=== PATIENT | male | born 1985 | race Caucasian/White ===

== ENCOUNTER 2018-07-21 21:18 | Emergency (ER) | payer OTHER ==
[2018-07-21 21:25] VITALS: BP 139/70; PULSE 94; TEMP 98.2; BMI 30.1
--- NOTE | 2018-07-21 21:33 | PDOC ---
History of Present Illness - General Chief Complaint: Injury Stated Complaint: LEFT SHOULDER PAIN Time Seen by Provider: 07/21/18 21:29 - History of Present Illness Initial Comments: 32-year-old male without comorbidities presents for evaluation of left shoulder pain. He states he was chasing a suspect. Climb the fence and fell on his left shoulder. He points just anterior lateral aspect of the left shoulder as the area of his discomfort. 07/21/18 21:32 Past History - Past Medical History Allergies/Adverse Reactions: Allergies Allergy/AdvReac Type Severity Reaction Status Date / Time cefprozil [From Cefzil] Allergy Intermediate Rash Verified 07/21/18 21:23 COPD: No - Immunization History Immunization Up to Date: Yes - Suicide/Smoking/Psychosocial Hx Smoking Status: No Smoking History: Never smoked Number of Cigarettes Smoked Daily: 0 Hx Alcohol Use: No Drug/Substance Use Hx: No Review of Systems - Review of Systems Musculoskeletal: Yes: See HPI, Joint Pain All Other Systems: Reviewed and Negative *Physical Exam - Vital Signs Last Vital Signs Temp Pulse Resp BP Pulse Ox 98.2 F 94 H 18 139/70 96 07/21/18 21:23 07/21/18 21:23 07/21/18 21:23 07/21/18 21:23 07/21/18 21:23 - Physical Exam Comments: Left shoulder range of motion is full with pain at terminal abduction and external rotation. 5 out of 5 strength in all planes including super spinatus isolation. Mildly positive impingement maneuvers. Mild tenderness over the before meals joint. No evidence of instability. No gross sensorimotor deficits negative Spurling maneuver. He has no gross sensorimotor deficits. He is neurovascularly intact 07/21/18 21:33 ED Treatment Course - RADIOLOGY Radiology Studies Ordered: Category Date Time Status SHOULDER-LEFT [RAD] Stat Radiology 07/21/18 21:32 Ordered Medical Decision Making - Medical Decision Making X-ray show no evidence of fracture trauma destructive process this is a left shoulder strain 07/21/18 22:06 *DC/Admit/Observation/Transfer Diagnosis at time of Disposition: Strain of shoulder, left - Discharge Dispostion Disposition: HOME Condition at time of disposition: Stable Decision to Admit order: No - Referrals Referrals: José Miguel Garcia MD [Staff Physician] - - Patient Instructions Additional Instructions: Return to the emergency room should symptoms worsen or go unresolved. Please follow-up with orthopedic surgery in 2-3 days for further evaluation and treatment options. May take Tylenol and Motrin as directed for pain. - Post Discharge Activity
== END 2018-07-21 22:09 | disposition home or self-care (01) ==
LOC: JERFT 21:18
DX: S46.812A Strain of other muscles, fascia and tendons at shoulder and upper arm level, left arm, initial encounter (principal); W17.89XA Other fall from one level to another, initial encounter; Y93.89 Activity, other specified; Y92.89 Other specified places as the place of occurrence of the external cause; Y99.0 Civilian activity done for income or pay
CPT/HCPCS: 73030-TC-LT-FY; 99281-25

== ENCOUNTER 2018-12-03 15:03 | Emergency (ER) | payer OTHER ==
[2018-12-03 15:22] VITALS: BP 136/76; PULSE 100; TEMP 97.9; BMI 30.1
--- NOTE | 2018-12-03 15:44 | PDOC ---
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 wearing long thick policed pants while this happened just prior to arrival Past History - Past Medical History Allergies/Adverse Reactions: Allergies Allergy/AdvReac Type Severity Reaction Status Date / Time cefprozil [From Cefzil] Allergy Intermediate Rash Verified 12/03/18 15:19 Home Medications: Ambulatory Orders NK [No Known Home Medication] 12/03/18 COPD: No - Immunization History Immunization Up to Date: Yes - Suicide/Smoking/Psychosocial Hx Smoking Status: No Smoking History: Never smoked Number of Cigarettes Smoked Daily: 0 Hx Alcohol Use: No Drug/Substance Use Hx: No Review of Systems - Review of Systems Constitutional: Yes: See HPI *Physical Exam - Vital Signs Last Vital Signs Temp Pulse Resp BP Pulse Ox 97.9 F 100 H 20 136/76 99 12/03/18 15:19 12/03/18 15:19 12/03/18 15:19 12/03/18 15:19 12/03/18 15:19 - Physical Exam Comments: 12/03/18 15:42 HEAD: NC/AT EYES: Conjuntiva clear ABDOMEN: Soft NT ND MS: Full ROM in all joints without edema; left knee skin color and temperature are normal. There are no breaks in skin. NEUROLOGIC: No gross sensory or motor deficits, NVID SKIN: Normal color and temperature no lesions or rashes Moderate Sedation - Procedure Monitoring Vital Signs: Procedure Monitoring Vital Signs Temperature 97.9 F 12/03/18 15:19 Pulse Rate 100 H 12/03/18 15:19 Respiratory Rate 20 12/03/18 15:19 Blood Pressure 136/76 12/03/18 15:19 O2 Sat by Pulse Oximetry (%) 99 12/03/18 15:19 *DC/Admit/Observation/Transfer Diagnosis at time of Disposition: Employee exposure to body fluids - Discharge Dispostion Disposition: HOME Condition at time of disposition: Stable Decision to Admit order: No - Referrals - Patient Instructions Printed Discharge Instructions: How to Handle Body Fluid Exposure -- Non- Healthcare Worker (At Home, [facility]gi Additional Instructions: Follow-up with your primary care physician in one to 2 days for further evaluation and treatment options. No treatment is necessary for this situation. Return to the emergency room should you have any further issues.
== END 2018-12-03 15:51 | disposition home or self-care (01) ==
LOC: JERFT 15:03
DX: Z77.21 Contact with and (suspected) exposure to potentially hazardous body fluids (principal); Y35.891A Legal intervention involving other specified means, law enforcement official injured, initial encounter; Y93.89 Activity, other specified; Y92.89 Other specified places as the place of occurrence of the external cause; Y99.0 Civilian activity done for income or pay
CPT/HCPCS: 99281-25

== ENCOUNTER 2023-11-06 10:47 | Emergency (ER) | payer OTHER ==
[2023-11-06 10:52] VITALS: BP 138/98; PULSE 97; RESP 18; TEMP 98.9; BMI 31.5
[2023-11-06] MEDS ORDERED: ACETAMINOPHEN 325 MG TABLET (FP) PO ONE (10:56)
[2023-11-06] MEDS ORDERED: LIDOCAINE 5% TOPICAL PATCH TP ONE (10:56)
[2023-11-06] MEDS ORDERED: ACETAMINOPHEN 325 MG TABLET (FP) ONE (11:03)
== END 2023-11-06 11:15 | disposition home or self-care (01) ==
LOC: FER 10:47
DX: M54.50 Low back pain, unspecified (principal)
CPT/HCPCS: 99283-25